=== PATIENT | male | born 1980 | race African-American/Black ===

== ENCOUNTER 2019-11-17 10:01 | Inpatient (IN) | payer SELFPAY ==
[~2019-11-17] VITALS: Ht 162.6 cm; Wt 64.9 kg
[2019-11-17] MEDS ORDERED: SODIUM CHLORIDE 0.9% 1,000 ML IV ONE ×3 (10:37→14:30)
[2019-11-17 10:58] LABS: Basophils # (auto) 0.1 uL; Basophils % (auto) 0.6 % (0.0-2.0); Eosinophils # (auto) 0 uL; Lymphocytes # (auto) 0.7 uL; Neutrophils # (auto) 11.2 uL; Nucleated Red Blood Cells % 0.1 %
[2019-11-17 11:00] LABS: Eosinophils % (auto) 0.1 % (0.0-7.0); Hematocrit 30.7 % (41.0-53.0); Hemoglobin 10.2 g/dL (13.5-17.5); Lymphocytes % (auto) 4.9 % (10.0-50.0); Mean Corpuscular Hemoglobin 26.2 pg (28.0-32.0); Mean Corpuscular Hgb Conc. 33.1 g/dL (32.0-36.0); Monocytes # (auto) 2.6 uL; Monocytes % (auto) 17.6 % (0.0-12.0); Neutrophils % (auto) 76.8 % (37.0-80.0); Platelet Count (auto) 295 10^3/uL (140-450); Red Blood Cells 3.89 10^6/uL (4.5-5.90); Red Cell Distribution Width 13.5 % (11.8-14.3); White Blood Cell 14.5 10^3/uL (4.4-10.8)
[2019-11-17 11:24] LABS: Urine Bacteria MANY /hpf (None Seen); Urine Blood Negative /uL (Negative); Urine Specific Gravity 1.003 (1.001-1.035); Urine WBC 3 /hpf (0 - 3)
[2019-11-17 11:50] LABS: Amphetamine Screen, Urine NEGATIVE (NEGATIVE); Barbiturate Scree,Urine NEGATIVE (NEGATIVE); Benzodiazephine Screen, Urine NEGATIVE (NEGATIVE); Cannabinoid Screen, Urine NEGATIVE (NEGATIVE); Cocaine Screen, Urine NEGATIVE (NEGATIVE); Opiate Scree,Urine NEGATIVE (NEGATIVE); Phencyclidine Screen, Urine NEGATIVE (NEGATIVE)
[2019-11-17] MEDS ORDERED: cefTRIAXone 1GM/50ML D5W 50 ML IV ONE ×2 (12:00→14:30)
[2019-11-17 12:09] LABS: Albumin 2.7 g/dL (3.4-5.0); Calcium 9.2 mg/dL (8.5-10.1); Potassium 3.4 mmol/L (3.5-5.1)
[2019-11-17 12:12] LABS: BUN/Creatinine Ratio 15.3; Bilirubin, Total 0.7 mg/dL (0.2-1.0); Total Protein 8.3 g/dL (6.4-8.2)
[2019-11-17] MEDS: SODIUM CHLORIDE 0.9% 1,000 ML IV SCH ×2 (14:21→21:06)
[2019-11-17] MEDS ORDERED: THIAMINE 100mg/ml INJ (200mg/2ml VIAL) IV ONE (14:30)
[2019-11-17] MEDS ORDERED: FAMOTIDINE (10MG/ML) 2ML VL IV ONE (14:30)
[2019-11-17] MEDS ORDERED: POTASSIUM EFFERVESENT TAB 25 MEQ PO ONE (14:30)
[2019-11-17] MEDS ORDERED: MORPHINE SULF INJ 2 MG/ML SYRINGE 1ML IV PRN ×2 (14:30)
[2019-11-17] MEDS ORDERED: chlordiazePOXIDE HCL 25 MG CAP PO ONE ×2 (14:30)
[2019-11-17] MEDS ORDERED: NITROGLYCERIN 0.4 MG SL TAB SL PRN (14:30)
[2019-11-17] MEDS ORDERED: chlordiazePOXIDE HCL 25 MG CAP PO PRN (14:30)
[2019-11-17] MEDS ORDERED: traMADol HCL 50 MG TAB PO PRN (14:30)
[2019-11-17] MEDS ORDERED: PROMETHAZINE HCL 25 MG/ML 1ML IV PRN (14:30)
[2019-11-17] MEDS: FAMOTIDINE (10MG/ML) 2ML VL IV SCH (14:56)
[2019-11-17] MEDS: chlordiazePOXIDE HCL 25 MG CAP PO SCH ×2 (14:58→23:28)
[2019-11-17 20:01] VITALS: BP 131/50
[2019-11-18] MEDS: FAMOTIDINE (10MG/ML) 2ML VL IV SCH (02:52)
[2019-11-18] MEDS: SODIUM CHLORIDE 0.9% 1,000 ML IV SCH (03:23)
[2019-11-18 05:02] VITALS: BP 143/82
[2019-11-18] MEDS: chlordiazePOXIDE HCL 25 MG CAP PO SCH ×4 (06:28→23:23)
[2019-11-18 06:37] LABS: Basophils # (auto) 0.1 uL; Basophils % (auto) 0.7 % (0.0-2.0); Eosinophils # (auto) 0.1 uL; Lymphocytes # (auto) 0.7 uL; Mean Corpuscular Volume 80.8 fL (80.0-100.0); Neutrophils # (auto) 7.1 uL
[2019-11-18 06:40] LABS: Eosinophils % (auto) 1.1 % (0.0-7.0); Hematocrit 26.9 % (41.0-53.0); Hemoglobin 8.8 g/dL (13.5-17.5); Mean Corpuscular Hemoglobin 26.6 pg (28.0-32.0); Mean Corpuscular Hgb Conc. 32.9 g/dL (32.0-36.0); Monocytes # (auto) 1.5 uL; Monocytes % (auto) 15.6 % (0.0-12.0); Neutrophils % (auto) 75.6 % (37.0-80.0); Nucleated Red Blood Cells % 0.2 %; Platelet Count (auto) 325 10^3/uL (140-450); Red Blood Cells 3.32 10^6/uL (4.5-5.90); Red Cell Distribution Width 13.9 % (11.8-14.3); White Blood Cell 9.5 10^3/uL (4.4-10.8)
[2019-11-18 06:51] LABS: Potassium 3.4 mmol/L (3.5-5.1)
[2019-11-18 06:58] LABS: Albumin 1.8 g/dL (3.4-5.0); BUN/Creatinine Ratio 16.4; Bilirubin, Total 0.5 mg/dL (0.2-1.0); Calcium 8.4 mg/dL (8.5-10.1); Total Protein 6.4 g/dL (6.4-8.2)
[2019-11-18 08:00] VITALS: BP 145/83
[2019-11-18 09:00] VITALS: BP 145/83
[2019-11-18] MEDS ORDERED: cefTRIAXone 1GM/50ML D5W 50 ML IV SCH (09:00)
[2019-11-18] MEDS: SOD CHL 0.9%/ KCL 40MEQ 1,000 ML IV SCH ×2 (09:37→17:40)
[2019-11-18] MEDS: PANTOPRAZOLE 40 MG TAB PO SCH ×2 (09:38→20:54)
[2019-11-18] MEDS ORDERED: THIAMINE 100mg/ml INJ (200mg/2ml VIAL) IV SCH (10:00)
[2019-11-18 11:43] LABS: Hematocrit 28.6 % (41.0-53.0)
[2019-11-18 12:32] VITALS: BP 130/82
[2019-11-18 16:43] VITALS: BP 155/95
[2019-11-18 21:11] LABS: Hemoglobin 9.1 g/dL (13.5-17.5)
[2019-11-18 21:12] LABS: Hematocrit 27.6 % (41.0-53.0)
[2019-11-18 21:42] VITALS: BP 153/84
[2019-11-19 01:18] LABS: Hematocrit 27.9 % (41.0-53.0); Hemoglobin 9.1 g/dL (13.5-17.5)
[2019-11-19] MEDS: SOD CHL 0.9%/ KCL 40MEQ 1,000 ML IV SCH (01:55)
[2019-11-19 05:00] VITALS: BP 160/91
[2019-11-19 05:45] LABS: Basophils # (auto) 0.1 uL; Lymphocytes # (auto) 0.8 uL
[2019-11-19 05:49] LABS: Basophils % (auto) 0.6 % (0.0-2.0); Eosinophils # (auto) 0.2 uL; Eosinophils % (auto) 2.1 % (0.0-7.0); Hematocrit 27.7 % (41.0-53.0); Lymphocytes % (auto) 10.3 % (10.0-50.0); Mean Corpuscular Hemoglobin 26.5 pg (28.0-32.0); Mean Corpuscular Hgb Conc. 32.4 g/dL (32.0-36.0); Mean Corpuscular Volume 81.7 fL (80.0-100.0); Monocytes # (auto) 1.4 uL; Monocytes % (auto) 16.8 % (0.0-12.0); Neutrophils # (auto) 5.7 uL; Neutrophils % (auto) 70.2 % (37.0-80.0); Nucleated Red Blood Cells % 0.2 %; Platelet Count (auto) 404 10^3/uL (140-450); Red Blood Cells 3.39 10^6/uL (4.5-5.90); Red Cell Distribution Width 13.9 % (11.8-14.3); White Blood Cell 8.2 10^3/uL (4.4-10.8)
[2019-11-19 06:05] LABS: Potassium 3.7 mmol/L (3.5-5.1)
[2019-11-19] MEDS: chlordiazePOXIDE HCL 25 MG CAP PO SCH (06:07)
[2019-11-19 06:14] LABS: Albumin 2.2 g/dL (3.4-5.0); BUN/Creatinine Ratio 10.3; Bilirubin, Total 0.5 mg/dL (0.2-1.0); Calcium 8.6 mg/dL (8.5-10.1); Total Protein 6.7 g/dL (6.4-8.2)
[2019-11-19 08:58] VITALS: BP 165/89
== END 2019-11-19 08:30 | disposition left against medical advice (07) | DRG 391 ==
LOC: ER 10:01 → OVERFLOW 10:02 → TELE-WESTW 20:01
PROVIDERS: ADMIT Internal Medicine; ATTEND Internal Medicine
DX: K29.70 Gastritis, unspecified, without bleeding (principal); K85.20 Alcohol induced acute pancreatitis without necrosis or infection; N39.0 Urinary tract infection, site not specified; E87.1 Hypo-osmolality and hyponatremia; F10.231 Alcohol dependence with withdrawal delirium; F17.210 Nicotine dependence, cigarettes, uncomplicated; E87.6 Hypokalemia; D72.829 Elevated white blood cell count, unspecified
CPT/HCPCS: 36415; 74176; 76705; 80053; 80307; 80320; 81001; 82150; 82550; 83690; 85014; 85018; 85025; 85045; 87086; 87088; 87186; 96361; 96365; 96375; 96376; G0378; J0696; J3490

== ENCOUNTER 2019-11-19 11:09 | Emergency (ER) | payer SELFPAY ==
[~2019-11-19] VITALS: Ht 162.6 cm; Wt 63.5 kg
[2019-11-19 15:30] VITALS: BP 106/71
== END 2019-11-19 15:33 | disposition home or self-care (01) ==
LOC: ER 11:09
DX: N39.0 Urinary tract infection, site not specified (principal); F17.210 Nicotine dependence, cigarettes, uncomplicated

== ENCOUNTER → 2021-04-27 | Emergency (ER) | payer MEDICAID ==
[~2021-04-27] VITALS: Ht 162.6 cm; Wt 56.7 kg
[~2021-04-27] MED LIST: SODIUM CHLORIDE 0.9% 1,000 ML IVB ONE
[2021-04-27 15:30] LABS: Hemoglobin 9.6 g/dL (13.5-17.5)
[2021-04-27 15:32] LABS: Hematocrit 30.2 % (41.0-53.0); Mean Corpuscular Hemoglobin 21.5 pg (28.0-32.0); Mean Corpuscular Hgb Conc. 31.7 g/dL (32.0-36.0); Mean Corpuscular Volume 67.7 fL (80.0-100.0); Red Blood Cells 4.46 10^6/uL (4.5-5.90); White Blood Cell 9.2 10^3/uL (4.4-10.8)
[2021-04-27 15:38] LABS: Red Cell Distribution Width 22.6 % (11.8-14.3)
[2021-04-27 15:40] LABS: Basophils % (manual) 0 (0.0-2.0); Blast Cells 0; Metamyelocytes % 0; Myelocytes % 0; Promyelocytes % 0; Reactive Lymphocytes 0
[2021-04-27 15:58] LABS: Alanine Aminotransferase 105 U/L (16-61); Albumin 3.9 g/dL (3.4-5.0); Anion Gap 11 (5-15); Aspartate Aminotransferase 98 U/L (15-37); BUN/Creatinine Ratio 6.4; Blood Urea Nitrogen 5 mg/dL (7-18); Calcium 9.8 mg/dL (8.5-10.1); Carbon Dioxide 20 mmol/L (21-32); Chloride 94 mmol/L (98-107); GFR African American 140 mL/min; GFR Non-African American 116 mL/min; Glucose 96 mg/dL (74-106); Potassium 3.9 mmol/L (3.5-5.1); Sodium 125 mmol/L (136-145)
[2021-04-27 16:03] LABS: Alkaline Phosphatase 70 U/L (45-117); Bilirubin, Total 0.4 mg/dL (0.2-1.0); Total Protein 8.9 g/dL (6.4-8.2)
[2021-04-27 17:35] LABS: Band Neutrophils % (manual) 5; Eosinophils % (manual) 1 (0-7); Lymphocytes % (manual) 19 (10.0-50.0); Monocytes % (manual) 9 (0-12)
[2021-04-27 22:10] VITALS: BP 134/90
== END | disposition home or self-care (01) ==
LOC: ER 14:42
DX: R53.1 Weakness (principal); D64.9 Anemia, unspecified; E87.8 Other disorders of electrolyte and fluid balance, not elsewhere classified; F17.210 Nicotine dependence, cigarettes, uncomplicated; R07.89 Other chest pain; R10.9 Unspecified abdominal pain; M79.605 Pain in left leg; M79.604 Pain in right leg; Z20.822 Contact with and (suspected) exposure to COVID-19
CPT/HCPCS: 36415; 71045; 80053; 84484; 85007; 85027; 87426; 93005; 99285; J7030